=== PATIENT | female | born 1980 | race Caucasian/White ===

== ENCOUNTER 2017-02-10 18:44 | Emergency (ER) | payer MEDICAID ==
[2017-02-10 19:40] LABS: % BASOPHILS 0.3 % (0.0-2.0); % EOSINOPHILS 0.6 % (0.0-5.0); % LYMPHOCYTES 15.4 % (20.0-50.0); % MONOCYTES 4.4 % (2.0-10.0); % NEUTROPHILS 79.3 % (40.0-80.0); HEMATOCRIT 32.8 % (41.0-60); HEMOGLOBIN 10.8 gm/dL (12-16); MEAN CELL VOLUME 92.8 fl (81-100); MEAN CORPUSCULAR HEMOGLOBIN 30.7 pg (27.0-31.0); MEAN CORPUSCULAR HGB CONC 33.1 pg (28.0-36.0); MEAN PLATELET VOLUME 7.7 fl; NEUTROPHILE ABSOLUTE 10.1 Th/cmm (1.8-8.0); PLATELET COUNT 395 Th/cmm (150-400); RED BLOOD COUNT 3.54 Mil/cmm (3.80-5.10); RED CELL DISTRIBUTION WIDTH 13.1 % (11.5-20.0)
[2017-02-10 19:48] LABS: URINE BILIRUBIN NEGATIVE (NEGATIVE); URINE BLOOD LARGE (NEGATIVE); URINE GLUCOSE (UA) NEGATIVE (NEGATIVE); URINE KETONE NEGATIVE (NEGATIVE); URINE PH 5.5 (4.6 - 8.0); URINE PROTEIN TRACE mg/dL (NEGATIVE); URINE UROBILINOGEN 0.2 E.U./dL (0.2 - 1.0)
[2017-02-10 19:49] LABS: WHITE BLOOD COUNT 12.8 Th/cmm (4.8-10.8)
[2017-02-10 19:54] LABS: ALB/GLOB RATIO 1.7 (1.0-1.8); ALKALINE PHOSPHATASE 61 U/L (34-104); AMYLASE SERUM 77 U/L (29-103); ANION GAP 8.8 (7.0-16.0); BILIRUBIN,TOTAL 0.3 mg/dL (0.3-1.0); BUN - UREA NITROGEN 14 mg/dL (7-25); BUN/CREATININE RATIO 23.3; CALCIUM SERUM 9.4 mg/dL (8.6-10.3); CARBON DIOXIDE 24.7 mEq/L (21.0-31.0); CHLORIDE 103 mEq/L (98-107); CREATININE - SERUM 0.6 mg/dL (0.6-1.2); GLUCOSE 147 mg/dL (70-105); LIPASE 32 U/L (11-82); POTASSIUM SERUM 3.5 mEq/L (3.5-5.1); SGOT 12 U/L (13-39); SGPT/ALT 16 U/L (7-52); SODIUM SERUM 133 mEq/L (136-145)
[2017-02-10 19:56] LABS: URINE BACTERIA MODERATE /hpf (NONE SEEN); URINE COLOR YELLOW; URINE EPITHELIAL CELLS MODERATE /lpf (FEW)
[2017-02-10 19:57] LABS: URINE CALCIUM OXALATE CRYSTALS FEW /hpf
--- NOTE | 2017-02-10 20:06 | ED Physician Chart ---
ED Chief Complaint/HPI - Patient Information Date Seen:: 02/10/17 Time Seen:: 19:30 Chief Complaint:: low abdominal pain History of Present Illness:: 37 yo female, , underwent a "removal of some tissue" at an outside ER on due to "the fetus was very low" according to the patient. At that time, she was 5 weeks gestation with hCG 3093 mIU/mL and Rh positive. About 2 days ago, the patient developed low abdominal cramp pain with nausea. The pain gradually worsened with radiation to the back. She felt tremor of body due to pain. After the abdominal pain became intolerable, she came to ER. She vomited once in the ER. Allergies:: Allergies Allergy/AdvReac Type Severity Reaction Status Date / Time No Known Allergies Allergy Verified 02/10/17 19:00 Vitals:: Vital Signs - 8 hr 02/10/17 19:00 Temp 97.7 F HR 97 RR 14 BP 105/70 O2 Sat % 100 ED Review of Systems - Review of Systems General/Constitutional: No fever, Chills Skin: No skin lesions Head: No headache Eyes: No loss of vision ENT: No earache Neck: No neck pain, No swelling Cardio Vascular: No chest pain Pulmonary: No SOB GI: Nausea, No vomiting, No diarrhea Nurse Chemical Dependency: Abnormal vaginal bleeding Musculoskeletal: No bone or joint pain Psychiatric: No prior psych history ED Past Medical History - Past Medical History Past Medical History: No significant medical hx Social History: Non Smoker, No Alcohol, No Drug Use Surgical History: Appendectomy, Family Medical History - Family Member Mother Ethnicity: Hx Family Cancer: No Hx Family Coronary Artery Disease: No Hx Family Stroke: No Hx Family Seizures: No ED Physical Exam - Physical Examination General/Constitutional: Awake, Alert Head: Atraumatic Eyes: PERRL, EOMI Skin: No skin lesions Neck: Full ROM w/o pain Cardio Vascular: RRR, No murmur, gallop, rubs, NL S1 S2 Other GI comments:: Lower quadrant tenderness, diffuse. Abdomen soft Other comments:: B/L CVA percussion caused abdominal tenderness Extremities: normal strength in all extremities Neuro/Psych: No focal deficits ED Labs/Radiology/EKG Results - Lab Results Results: Laboratory Tests 02/10/17 02/10/17 02/10/17 18:32 18:32 18:32 WBC 12.8 H RBC 3.54 L Hgb 10.8 L Hct 32.8 L MCV 92.8 MCH 30.7 MCHC Differential 33.1 RDW 13.1 Plt Count 395 MPV 7.7 Neutrophils % 79.3 Lymphocytes % 15.4 L Monocytes % 4.4 Eosinophils % 0.6 Basophils % 0.3 Sodium 133 L Potassium 3.5 Chloride 103 Carbon Dioxide 24.7 Anion Gap 8.8 BUN 14 Creatinine 0.6 Est GFR ( Amer) > 60.0 Est GFR (Non-Af Amer) > 60.0 BUN/Creatinine Ratio 23.3 Glucose 147 H Whole Bld Lactic Acid Calcium 9.4 Total Bilirubin 0.3 AST 12 L ALT 16 Alkaline Phosphatase 61 Total Protein 6.8 Albumin 4.3 Globulin 2.5 Albumin/Globulin Ratio 1.7 Amylase 77 Lipase 32 Urine Source Urine Color Urine Clarity Urine pH Ur Specific Munith Urine Protein Urine Glucose (UA) Urine Ketones Urine Blood Urine Nitrate Urine Bilirubin Urine Urobilinogen Ur Leukocyte Esterase Urine RBC Urine WBC Ur Epithelial Cells Calcium Oxalate Crystal Urine Bacteria Urine Mucus Urine Test 02/10/17 02/10/17 02/10/17 19:20 19:20 19:32 WBC RBC Hgb Hct MCV MCH MCHC Differential RDW Plt Count MPV Neutrophils % Lymphocytes % Monocytes % Eosinophils % Basophils % Sodium Potassium Chloride Carbon Dioxide Anion Gap BUN Creatinine Est GFR ( Amer) Est GFR (Non-Af Amer) BUN/Creatinine Ratio Glucose Whole Bld Lactic Acid 1.87 Calcium Total Bilirubin AST ALT Alkaline Phosphatase Total Protein Albumin Globulin Albumin/Globulin Ratio Amylase Lipase Urine Source CLEAN C Urine Color YELLOW Urine Clarity HAZY Urine pH 5.5 Ur Specific Munith >= 1.030 Urine Protein TRACE Urine Glucose (UA) NEGATIVE Urine Ketones NEGATIVE Urine Blood LARGE H Urine Nitrate NEGATIVE Urine Bilirubin NEGATIVE Urine Urobilinogen 0.2 Ur Leukocyte Esterase NEGATIVE Urine RBC 5-10 H Urine WBC 2-5 Ur Epithelial Cells MODERATE Calcium Oxalate Crystal FEW Urine Bacteria MODERATE Urine Mucus FEW Urine Test POSITIVE Comments:: hCG 3093 mIU/mL on 01/26/17 hCG 8966 mIU/mL on 02/10/17 - Radiology Results Results: Pelvic u/s: ectopic ED Assessment - Assessment General Assessment: Abdominal pain due to ectopic Critical Care Time: 50 min Excludes all billable procedures: Yes This condition life threatening/high prob of deterioration: No Assessment/Comments:: CBC, CMP, UA, hCG Abdominal and pelvic u/s Pain control NS 2L IV Ancef 1gm IV x [address] Gómez at [facility] ER Transfer to [facility] ER for ophthalmology assistant care ED Septic Shock - . Is Septic Shock (SBP<90, OR Lactate>4 mmol\\L) present?: No - <6hrs of presentation: Vital Signs: Vital Signs - 8 hr 02/10/17 19:00 Temp 97.7 F HR 97 RR 14 BP 105/70 O2 Sat % 100 ED Reassessment (Disposition) - Reassessment Reassessment Condition:: Improved - Patient Disposition Discharge/Transfer:: Acute Care (other hosp) ED Discharge Plan - Patient Disposition Admit/Discharge/Transfer: Other Care (other hosp) Condition at Disposition: Improved
[2017-02-10] MEDS ORDERED: ceFAZolin 1 GM in Sodium Chloride 0.9% 50 ML IV ONE (20:08)
[2017-02-10] MEDS ORDERED: Sodium Chloride 0.9% 1,000 ML IV ONE ×2 (20:15→20:29)
[2017-02-10] MEDS ORDERED: Morphine Sulfate 2 mg/mL 1mL Syr ONE ×2 (20:15→21:06)
--- NOTE | 2017-02-11 08:24 | Diagnostic Imaging Report ---
Exam: Ultrasound examination of the pelvis. HISTORY: Pelvic pain, patient states she had miscarriage 2 weeks ago. Findings: Real-time ultrasound summation of pelvis was performed utilizing transvaginal technique. The study demonstrates normal echogenicity uterus measuring 10.2 x 5.5 x 6.4 cm diameter. There is no evidence for gestational sac or pole. Endometrial thickness is noted measures 10 poorly visualized No free fluid is noted in cul-de-sac. Ovaries aren't well seen. There is evidence for ill-defined left adnexal mass measuring 3.3 x 3 cm diameter. With the hypervascularity. Lucency within the mass is noted which might represent gestational sac without pole. This also might represent complex left ovarian cyst of hemorrhagic cyst, neoplastic component cannot be excluded. In view of the positive test ectopic gestation cannot be excluded. Serial HCG titers and follow-up examination recommended. IMPRESSION: 1. No evidence for intrauterine gestational sac or pole. 2. 3.3 x 3 cm mass in left adnexa with central lucency which might represent ectopic gestation clinical correlation serial hCG titers and follow up ultrasound examination recommended.
== END 2017-02-10 23:20 | disposition short-term general hospital (02) ==
LOC: ER 18:44
DX: O00.00 Abdominal pregnancy without intrauterine pregnancy (principal); R10.30 Lower abdominal pain, unspecified; R11.0 Nausea; Z90.49 Acquired absence of other specified parts of digestive tract
CPT/HCPCS: 99291; 96365; 76856; 96375; 96376; 36415; 84702; 83605; 85025; 81001; 82150; 84703; 81025; 83690; 80053; 87040; J2270 ×2; J2405; J0690; J7030; Z7502